=== PATIENT | female | born 1990 | race Caucasian/White ===

== ENCOUNTER 2017-03-22 13:49 | Emergency (ER) | payer MEDICAID ==
[2017-03-22 15:14] VITALS: BP 114/61
== END 2017-03-22 14:18 | disposition short-term general hospital (02) ==
LOC: ED 13:49
DX: O26.891 Other specified pregnancy related conditions, first trimester (principal); R10.9 Unspecified abdominal pain; Z3A.08 8 weeks gestation of pregnancy
CPT/HCPCS: J7030